=== PATIENT | female | born 1970 | race Two or more races ===

== ENCOUNTER 2017-08-06 21:05 | Emergency (ER) | payer MEDICAID ==
[~2017-08-06] VITALS: Ht 160 cm; Wt 72.6 kg
[~2017-08-06 21:05] MED LIST: CEPH250C PO; HYDR-4683 PO; IBUP800T24 PO
[2017-08-06 21:38] LABS: Urine Bacteria NONE SEEN /hpf (None Seen); Urine Blood 1+ /uL (Negative); Urine Specific Gravity 1.014 (1.001-1.035); Urine WBC 1 /hpf (0 - 5)
[2017-08-06 22:00] LABS: Basophils # (auto) 0 uL; Basophils % (auto) 0.2 % (0.0-2.0); Eosinophils # (auto) 0.1 uL; Eosinophils % (auto) 0.9 % (0.0-7.0); Hematocrit 38.8 % (36.0-46.0); Lymphocytes # (auto) 2.4 uL; Lymphocytes % (auto) 26.1 % (10.0-50.0); Mean Corpuscular Hemoglobin 28.9 pg (28.0-32.0); Mean Corpuscular Hgb Conc. 33.6 g/dL (32.0-36.0); Mean Corpuscular Volume 85.8 fL (80.0-100.0); Monocytes # (auto) 0.5 uL; Neutrophils # (auto) 6.1 uL; Neutrophils % (auto) 66.8 % (37.0-80.0); Platelet Count (auto) 277 10^3/uL (140-450); Red Blood Cells 4.52 10^6/uL (4.0-5.20); Red Cell Distribution Width 14.3 % (11.8-14.3); White Blood Cell 9.1 10^3/uL (4.4-10.8)
[2017-08-06 22:05] LABS: Albumin 3.7 g/dL (3.4-5.0); BUN/Creatinine Ratio 23.4; Bilirubin, Total 0.4 mg/dL (0.2-1.0); INR 0.93 (0.9-1.15); Partial Thromboplastin Time 26.3 sec (22.64-33.71); Potassium 3.8 mmol/L (3.5-5.1); Prothrombin Time 10.1 sec (9.37-12.3); Total Protein 7.5 g/dL (6.4-8.2)
[2017-08-06] MEDS ORDERED: NALBUPHINE HCL 10 MG/1ml INJECTION IV ONE (23:30)
[2017-08-06] MEDS ORDERED: SODIUM CHLORIDE 0.9% 1,000 ML IV ONE (23:30)
[2017-08-07 01:13] VITALS: BP 102/72
== END 2017-08-07 01:57 | disposition home or self-care (01) ==
LOC: ER 21:05
DX: K59.00 Constipation, unspecified (principal); Z90.49 Acquired absence of other specified parts of digestive tract
CPT/HCPCS: 36415; 74176; 80053; 81001; 81025; 82150; 83690; 85025; 85610; 85730; 94761; 96361; 96374; 99285; J2300; J7030

== ENCOUNTER 2018-03-02 15:01 | Emergency (ER) | payer MEDICAID ==
[~2018-03-02] VITALS: Ht 162.6 cm; Wt 77.1 kg
[2018-03-02] MEDS ORDERED: KETOROLAC TROMETH 60MG/2ML VIAL IM ONE (15:45)
[2018-03-02] MEDS ORDERED: ONDANSETRON ODT 4 MG TAB PO ONE (15:45)
[2018-03-02 16:22] VITALS: BP 136/72
== END 2018-03-02 16:35 | disposition home or self-care (01) ==
LOC: ER 15:01
DX: G44.209 Tension-type headache, unspecified, not intractable (principal); A08.4 Viral intestinal infection, unspecified; Z90.49 Acquired absence of other specified parts of digestive tract
CPT/HCPCS: 70450; 81025; 96372; 99284; J1885; Q0162